=== PATIENT | male | born 1990 | race Caucasian/White ===

== ENCOUNTER 2017-11-14 20:53 | Emergency (ER) | payer SELFPAY ==
[2017-11-14 21:09] VITALS: BP 137/101
--- NOTE | 2017-11-14 21:13 | ED ---
Altered Mental Status - HPI Summary HPI Summary: 27 y/o male here c/o headache, confusion, "dissociative vision", anxiety, and increased BP. He was taking Lisinopril but PCP took him off. Today his symptoms are getting worse and he is very concern. Denies any weakness or CP. - History Of Current Complaint Stated Complaint: ANXIETY, PRESSURE IN HEAD, NAUSEA Time Seen by Provider: 11/14/17 20:58 - Allergies/Home Medications Allergies/Adverse Reactions: Allergies Allergy/AdvReac Type Severity Reaction Status Date / Time Penicillins Allergy Unknown Verified 11/14/17 21:09 Reaction Details Home Medications: Home Medications Acetaminophen [Tylenol] 325 mg PO 11/14/17 [History] PMH/Surg Hx/FS Hx/Imm Hx Infectious Disease History: Denies: Traveled Outside the [place] in Last 30 Days - Social History Alcohol Use: Daily Substance Use Type: Reports: None Smoking Status (MU): Unknown if Ever Smoked Review of Systems Constitutional: Negative Eyes: Other - "dissociative vision" ENT: Negative Cardiovascular: Negative Respiratory: Negative Gastrointestinal: Negative Genitourinary: Negative Musculoskeletal: Negative Skin: Negative Positive: Headache Positive: Anxious All Other Systems Reviewed And Are Negative: Yes Physical Exam - Summary Physical Exam Summary: VITAL SIGNS: Reviewed. GENERAL: Patient is an obese male who is sitting comfortable in the stretcher. Patient is not in any acute respiratory distress. HEAD AND FACE: Normacephalic and atraumatic. EYES: PERRLA, EOMI x 2, EARS: Hearing grossly intact. MOUTH: Oropharynx within normal limits. NECK: Supple, trachea is midline, no adenopathy, no JVD, no carotid bruit, no c- spine tenderness, neck with full ROM. CHEST: Symmetric, no tenderness at palpation LUNGS: CTA B/L. No wheezing or crackles. CVS: RRR, S1 and S2 present, no murmurs or gallops appreciated. ABDOMEN: Soft, NT, No distention. Normal BS. EXTREMITIES: FROM in all major joints, no edema, no cyanosis or clubbing. NEURO: Alert and oriented x 3. No acute neurological deficits. Speech is normal and follows commands. NIH score is 0. SKIN: Dry and warm Altered Mental Statu Course/Dx - Course Assessment/Plan: Patient with multiple complaints. However patient and significant other reports episodes of confusion, visual changes and he is hypertensive. I believe patient may benefit of further assessment in the ED. He declined ambulance. He will be driven by significant other. He is A+O x 3. - Diagnoses Provider Diagnoses: Headache, Visual changes, Anxiety, Hypertension Discharge - Sign-Out/Discharge Documenting (check all that apply): Discharge/Admit/Transfer - Discharge Plan Condition: Stable Disposition: HOME Patient Education Materials: Acute Headache (ED), Hypertension (ED) Referrals: Kyle Whitaker DO [Primary Care Provider] - Additional Instructions: Patient will be discharged to the ED for further assessment. He declined ambulance. - Billing Disposition and Condition Condition: STABLE Disposition: HOME
== END 2017-11-14 21:18 | disposition home or self-care (01) ==
LOC: UCEAST 20:53
DX: R51 Headache (principal); H53.9 Unspecified visual disturbance; F41.9 Anxiety disorder, unspecified; I10 Essential (primary) hypertension; Z88.0 Allergy status to penicillin
CPT/HCPCS: 99212; G0463

== ENCOUNTER 2017-11-14 21:45 | Emergency (ER) | payer SELFPAY ==
[2017-11-14] MEDS ORDERED: NS 0.9% 1000 ML* 1,000 ML IV ONE (22:43)
[2017-11-14] MEDS ORDERED: diPHENhydraMINE IV* 50 MG/ML 1 ml VIAL (BENADRYL) IV ONE (22:45)
[2017-11-14] MEDS ORDERED: Metoclopramide IV* 5 MG/ML 2 ML VIAL IV ONE (22:45)
[2017-11-14 23:19] LABS: INR 1.17 (0.77-1.02)
[2017-11-14 23:23] LABS: ABS Basophils 0.1 10^3/ul (0-0.2); ABS Eosinophils 0.2 10^3/ul (0-0.6); ABS Lymphocytes 3.2 10^3/ul (1.0-4.8); ABS Monocytes 0.6 10^3/ul (0-0.8); ABS Neutrophils 4.1 10^3/ul (1.5-7.7); ABS Nucleated RBC 0 10^3/ul; Eosinophil % 2.2 % (0-6); Hematocrit 43 % (42-52); Hemoglobin 15.4 g/dl (14.0-18.0); Lymphocyte % 39.4 % (25-47); Mean Corpuscular HGB Conc 36 g/dl (31-36); Mean Corpuscular Hemoglobin 31 pg (27-31); Mean Corpuscular Volume 86 fL (80-94); Mean Platelet Volume 8.7 um3 (7.4-10.4); Nucleated Red Blood Cells % 0.2; Platelet Count 241 10^3/ul (150-450); Red Blood Count 5.03 10^6/ul (4.0-5.4); Red Cell Distribution Width 13 % (10.5-15); White Blood Count 8.2 10^3/ul (3.5-10.8)
[2017-11-14 23:24] LABS: EGFR Non-African American 105.1 (>60)
--- NOTE | 2017-11-15 01:22 | ED ---
Sergio Crandall Jennifer, scribed for Cristi Her MD on 11/14/17 at 2246 . Complex/Multi-Sys Presentation - HPI Summary HPI Summary: The patient is a 27 y/o M who comes from [facility] complaining of intense anxiety, headache, and dizziness for three days. The patient states he has a history of tinnitus, but this has been worsening recently. He reports he ate a big dinner when he experienced myopic focus and new symptoms of anxiety that he has never had before. The patient additionally complains of shortness of breath, palpitations, pressure in his head, nausea, chills, and sweats. He was also hypertensive at . He denies chest pain, leg swelling, calf pain, and fever. The patient reports he took two 500mg tablets of extra strength Tylenol. - History Of Current Complaint Chief Complaint: EDGeneral Time Seen by Provider: 11/14/17 22:20 Hx Obtained From: Patient Onset/Duration: Sudden Onset, Lasting Days - 3 days, Still Present, Worse Since Timing: Constant Severity Currently: Moderate Severity Initially: Moderate Location: Pain At: - head pressure Character: Pressure Associated Signs And Symptoms: Positive: Other - anxiety, headache, dizziness, tinnitus, "myopic focus", shortness of breath, palpitations, nausea, chills, sweats, hypertensive. NEGATIVE: chest pain, leg swelling, calf pain, fever - Allergies/Home Medications Allergies/Adverse Reactions: Allergies Allergy/AdvReac Type Severity Reaction Status Date / Time Penicillins Allergy Unknown Verified 11/14/17 21:52 Reaction Details PMH/Surg Hx/FS Hx/Imm Hx Endocrine/Hematology History: Reports: Other Endocrine/Hematological Disorders - Factor Five Leiden Cardiovascular History: Reports: Hx Hypertension Infectious Disease History: No Infectious Disease History: Denies: Traveled Outside the [place] in Last 30 Days - Family History Known Family History: Positive: Other - Mother - HHT - Social History Alcohol Use: None 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 Substance Use Type: Reports: None Smoking Status (MU): Light Every Day Tobacco Smoker Review of Systems Positive: Chills, Skin Diaphoresis. Negative: Fever Positive: Other - "myopic focus" Positive: Palpitations, Other - hypertensive. Negative: Chest Pain Positive: Shortness Of Breath Positive: Nausea Negative: Edema, Other - calf pain Neurological: Other - Dizziness, tinnitus Positive: Headache - head pressure Positive: Anxious All Other Systems Reviewed And Are Negative: Yes Physical Exam - Summary Physical Exam Summary: GENERAL: ~Patient is a well developed and nourished M who is lying comfortable in the stretcher. ~Patient is not in any acute respiratory distress. HEAD AND FACE: Normocephalic EYES: PERRLA, EOMI x 2. EARS: Hearing grossly intact. MOUTH: Oropharynx within normal limits. NECK: Supple, trachea is midline, no adenopathy, no JVD, no carotid bruit. CHEST: Symmetric, no tenderness at palpation LUNGS: Clear to auscultation bilaterally. No wheezing or crackles. CVS: Regular rate and rhythm, S1 and S2 present, no murmurs or gallops appreciated. ABDOMEN: Soft, non-tender. Bowel sounds are normal. No abdominal abnormal pulsations. EXTREMITIES: Full ROM in all major joints, no edema, no cyanosis or clubbing. NEURO: Alert and oriented x 3. No acute neurological deficits. Speech is normal and follows commands. SKIN: Dry and warm Triage Information Reviewed: Yes Vital Signs On Initial Exam: Initial Vitals Temp Pulse Resp BP Pulse Ox 98.2 F 118 16 167/94 97 11/14/17 21:45 11/14/17 21:45 11/14/17 21:45 11/14/17 21:45 11/14/17 21:45 Vital Signs Reviewed: Yes Diagnostics - Vital Signs Vital Signs Temp Pulse Resp BP Pulse Ox 11/14/17 21:45 98.2 F 118 16 167/94 97 - Laboratory Result Diagrams: 11/14/17 22:59 11/14/17 22:59 Lab Statement: Any lab studies that have been ordered have been reviewed, and results considered in the medical decision making process. - Radiology CXR Xray Interpretation: No Acute Changes - Normal. Radiology Interpretation Completed By: ED Physician - CT Brain CT CT Interpretation: No Acute Changes - Normal head. Dr. Her has reviewed this report. CT Interpretation Completed By: Radiologist - EKG 8493 Cardiac Rate: NL EKG Rhythm: Sinus Rhythm - 91 BPM Complex Multi-Symp Course/Dx Course Of Treatment: The patient is a 27 y/o M who comes from [facility] complaining of intense anxiety, headache, and dizziness for three days. In the ED course the patient was given IV fluids, Benadryl, and Reglan. Bloodwork was obtained. EKG and CXR obtained. The patient is diagnosed with Headache and Palpitation. Pt is instructed to follow up with PCP in 3 days. Return precautions given. - Diagnoses Provider Diagnoses: Headache, Palpitation Discharge - Sign-Out/Discharge Documenting (check all that apply): Discharge/Admit/Transfer - Discharge Plan Condition: Stable Disposition: HOME Patient Education Materials: Heart Palpitations (ED), Acute Headache (ED) Referrals: Kyle Whitaker DO [Primary Care Provider] - 3 Days Additional Instructions: Follow up with your primary care physician in three days. Return to the emergency department for any new or worsening symptoms. The documentation as recorded by the Sergio arteaga Jennifer accurately reflects the service I personally performed and the decisions made by , Cristi Her MD.
[2017-11-15 01:32] VITALS: BP 138/84
--- NOTE | 2017-11-15 09:10 | RAD ---
Indication: Headaches. CT of the brain was performed without IV contrast. Ventricular structures are midline. No midline shift is noted. The extra-axial spaces are unremarkable. Comparison is made with previous exam dated 05/09/2010 and 12/17/2004. Ventricular structures are midline. No midline shift is noted. The extraction spaces are unremarkable. Again noted deep white matter in the right parietal lobe is a calcified fluid density lesion measuring approximately 7 mm in greatest dimension. This is unchanged from previous exam as far back as 2004 and 2009. Some peripheral calcifications are noted. This may represent degeneration of disks blastic tissue. There is a prominent sulci in the right parietal lobe. Several arachnoid cysts are noted. The paranasal sinuses and orbits are otherwise unremarkable. IMPRESSION: There is a cystlike calcified structure deep in the right parietal white matter which appears to communicate with the area of a prominent sulcus in the right parietal lobe. This may represent dystrophic tissue that has degenerated. No intracranial mass or hemorrhage is noted.
--- NOTE | 2017-11-15 10:09 | RAD ---
Indication: Chest pain. Single frontal view of the chest performed at 2311 hours was reviewed. Comparison is made with previous exam dated June 23, 1980. No mediastinal shift is noted. Heart is of normal size and configuration. Lung agudelo appear clear. IMPRESSION: NO ACTIVE CARDIOPULMONARY DISEASE IS NOTED.
== END 2017-11-15 01:30 | disposition home or self-care (01) ==
LOC: ED 21:45
DX: R51 Headache (principal); R00.2 Palpitations; F41.9 Anxiety disorder, unspecified; R42 Dizziness and giddiness
CPT/HCPCS: 36415; 70450; 71045; 80053; 82553; 83605; 83880; 84443; 84484; 85025; 85379; 85610; 85730; 93005; 96374; 96375; 99282; J1200; J2765

== ENCOUNTER 2017-12-28 16:40 | Emergency (ER) | payer SELFPAY ==
[2017-12-28 16:47] VITALS: BP 136/94
--- NOTE | 2017-12-28 17:24 | UC ---
eDna Crandall Elizabeth, scribed for Francisco Javier Conteh MD on 12/28/17 at 1657 . Skin Complaint HPI - HPI Summary HPI Summary: This patient is a 27 year old M presenting to [facility] with a chief complaint of open lesion in the right lower abd since 3 days ago. The patient reports that he first noticed the lesion as a small bump since 2 weeks ago. The patient notes that the lesion has been leaking clear, watery fluid and has not discharged any pus recently. The patient rates the pain 1/10 in severity. Symptoms aggravated by rubbing against clothing. Symptoms alleviated by nothing. The patient notes he recently has been tested for STIs. - History of Current Complaint Chief Complaint: UCSkin Time Seen by Provider: 12/28/17 16:49 Stated Complaint: SORE ON ABDOMEN Hx Obtained From: Patient Onset/Duration: Sudden Onset, Lasting Days - 3 days, Still Present Skin Exposure Onset/Duration: Days Ago - 3 days Timing: Constant Onset Severity: Mild Current Severity: Mild Pain Intensity: 1 Pain Scale Used: 0-10 Numeric Location: Other - right lower abd Aggravating Factor(s): Clothing Alleviating Factor(s): Nothing Associated Signs & Symptoms: Positive: Drainage - clear, watery drainage - Allergy/Home Medications Allergies/Adverse Reactions: Allergies Allergy/AdvReac Type Severity Reaction Status Date / Time Penicillins Allergy Unknown Verified 12/28/17 16:47 Reaction Details Review of Systems Constitutional: Negative - neagtive chills Skin: Other - open lesion on right lower abdomen ENT: Negative - negative epistaxis Respiratory: Negative - negative cough All Other Systems Reviewed And Are Negative: Yes PMH/Surg Hx/FS Hx/Imm Hx Previously Healthy: Yes - Surgical History Surgical History: None - Family History Known Family History: Positive: Other - Mother - HHT - Social History Alcohol Use: None 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 Substance Use Type: None Smoking Status (MU): Light Every Day Tobacco Smoker Physical Exam - Summary Physical Exam Summary: General: well-appearing, no pain distress Skin: warm, color reflects adequate perfusion, dry, one area of folliculitis on the anterior waistline, no other lesions Head: normal Eyes: EOMI, LARRY ENT: normal Neck: supple, nontender Respiratory: CTA, breath sounds present Cardiovascular: RRR Abdomen: soft, nontender Bowel: present Musculoskeletal: normal, strength/ROM intact Neurological: sensory/motor intact, A&O x3 Psychological: affect/mood appropriate Triage Information Reviewed: Yes Vital Signs: Initial Vital Signs Temp 99.2 F 12/28/17 16:45 Pulse 99 12/28/17 16:45 Resp 18 12/28/17 16:45 BP 136/94 12/28/17 16:45 Pulse Ox 99 12/28/17 16:45 Vital Signs Reviewed: Yes Course/Dx - Diagnoses Provider Diagnoses: FOLLICULITIS Discharge - Sign-Out/Discharge Documenting (check all that apply): Discharge/Admit/Transfer - Discharge Plan Condition: Stable Disposition: HOME Discharge Disposition Comment: discharge home Prescriptions: Sulfamethox/Trimethoprim DS* [Bactrim DS 800/160 TAB*] 1 tab PO BID #20 tab Patient Education Materials: Folliculitis (ED) Referrals: Kyle Whitaker DO [Primary Care Provider] - Additional Instructions: FOLLOW UP WITH YOUR DOCTOR. GET RECHECKED FOR ANY WORSENING OF YOUR CONDITION OR QUESTIONS OR CONCERNS. - Billing Disposition and Condition Condition: STABLE Disposition: Home The documentation as recorded by the Dena arteaga Elizabeth accurately reflects the service I personally performed and the decisions made by me, Francisco Javier Conteh MD.
== END 2017-12-28 16:56 | disposition home or self-care (01) ==
LOC: UCEAST 16:40
DX: L73.9 Follicular disorder, unspecified (principal); Z88.0 Allergy status to penicillin; F17.200 Nicotine dependence, unspecified, uncomplicated
CPT/HCPCS: 99212; G0463

== ENCOUNTER 2018-01-26 21:12 | Emergency (ER) | payer SELFPAY ==
[2018-01-26] MEDS ORDERED: Ketorolac INJ* 30 MG/ML 1 ML VIAL IV ONE (23:01)
[2018-01-26] MEDS ORDERED: diPHENhydraMINE IV* 50 MG/ML 1 ml VIAL (BENADRYL) IM ONE (23:01)
[2018-01-26] MEDS ORDERED: Metoclopramide IV* 5 MG/ML 2 ML VIAL IV ONE (23:01)
--- NOTE | 2018-01-26 23:12 | ED ---
Headache - HPI Summary HPI Summary: This is jenni Bryant documenting for attending Nils Keita MD. This patient is a 27 year old M presenting to ED with a chief complaint of KATE since 1 hour ago. He reports onset occurred after a nose bleed 2 hours ago. He has been getting nose bleeds for a couple months now and after he would slip close to getting a KATE but never did until today. The patient rates the pain 5/ 10 in severity. Symptoms aggravated by nothing. Symptoms alleviated slightly spontaneously. Patient reports photosensitivity, elevated BP (secondary to being in the ED), pressure in his ears, and redness in his eyes after trying to alleviate KATE with a warm compress behind the head. Patient denies vomiting. PMHx of HTN (took lisinopril in the past but stopped because doctor said he didn t need it anymore). - History Of Current Complaint Chief Complaint: EDHeadache Stated Complaint: LETHARGIC/HEADACHE Time Seen by Provider: 01/26/18 22:45 Hx Obtained From: Patient Onset/Duration: Sudden Onset, Started hours ago - 1 hour ago, Still Present Currently Pain Is: Current Pain Scale(0-10)= - 5/10 Timing: Constant, Hours - since 1 hour ago Aggravating Factor: Nothing Allevating Factors: Other (Noted In Comments) - spontaneously alleviated slightly Associated Signs And Symptoms: Other (Noted In Comments) - Patient reports photosensitivity, elevated BP (secondary to being in the ED), pressure in his ears, and redness in his eyes after trying to alleviate KATE with a warm compress behind the head. Patient denies vomiting - Allergies/Home Medications Allergies/Adverse Reactions: Allergies Allergy/AdvReac Type Severity Reaction Status Date / Time Penicillins Allergy Unknown Verified 01/26/18 21:28 Reaction Details PMH/Surg Hx/FS Hx/Imm Hx Endocrine/Hematology History: Reports: Other Endocrine/Hematological Disorders - Factor Five Leiden Cardiovascular History: Reports: Hx Hypertension Infectious Disease History: No Infectious Disease History: Denies: Traveled Outside the [place] in Last 30 Days - Family History Known Family History: Positive: Other - Mother - HHT - Social History Alcohol Use: None 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 Substance Use Type: Reports: None Smoking Status (MU): Light Every Day Tobacco Smoker Review of Systems Positive: Other - photosensitivity, redness in his eyes after trying to alleviate KATE with a warm compress behind the head Positive: Other - pressure in his ears Positive: Other - elevated BP (secondary to being in the ED) Negative: Vomiting Positive: Headache All Other Systems Reviewed And Are Negative: Yes Physical Exam - Summary Physical Exam Summary: VITAL SIGNS: Reviewed. GENERAL: Patient is a well-developed and nourished MALE who is lying comfortable in the stretcher. Patient is not in any acute respiratory distress. HEAD AND FACE: No signs of trauma. No ecchymosis, hematomas or skull depressions. No sinus tenderness. EYES: PERRLA, EOMI x 2, No injected conjunctiva, no nystagmus. EARS: Hearing grossly intact. Ear canals and tympanic membranes are within normal limits. MOUTH: Oropharynx within normal limits. NECK: Supple, trachea is midline, no adenopathy, no JVD, no carotid bruit, no c- spine tenderness, neck with full ROM. CHEST: Symmetric, no tenderness at palpation LUNGS: Clear to auscultation bilaterally. No wheezing or crackles. CVS: Regular rate and rhythm, S1 and S2 present, no murmurs or gallops appreciated. ABDOMEN: Soft, non-tender. No signs of distention. No rebound no guarding, and no masses palpated. Bowel sounds are normal. EXTREMITIES: FROM in all major joints, no edema, no cyanosis or clubbing. NEURO: Alert and oriented x 3. No acute neurological deficits. Speech is normal and follows commands. SKIN: Dry and warm Triage Information Reviewed: Yes Vital Signs On Initial Exam: Initial Vitals Temp Pulse Resp BP Pulse Ox 98.6 F 78 19 154/110 96 01/26/18 21:24 01/26/18 21:24 01/26/18 21:24 01/26/18 21:24 01/26/18 21:24 Vital Signs Reviewed: Yes Diagnostics - Vital Signs Vital Signs Temp Pulse Resp BP Pulse Ox 01/26/18 21:24 98.6 F 78 19 154/110 96 - Laboratory Result Diagrams: 01/26/18 23:37 01/26/18 23:37 Lab Statement: Any lab studies that have been ordered have been reviewed, and results considered in the medical decision making process. Headache Course/Dx - Course Assessment/Plan: The patient refused pain medications here in the ED. His workup is within normal limits. He will be discharged home with dx of HTN and KATE. He will be given lisinopril for his HTN. He is agreeable with this plan. - Diagnoses Differential Diagnosis/HQI/PQRI: Other - HTN, KATE Provider Diagnoses: HTN (hypertension), Headache Discharge - Sign-Out/Discharge Documenting (check all that apply): Patient Departure - Discharge Plan Condition: Stable Disposition: HOME Prescriptions: Lisinopril TAB* [Prinivil TAB 5 MG*] 5 mg PO DAILY #30 tab Patient Education Materials: Acute Headache (ED), Hypertension (ED) Referrals: Kyle Whitaker DO [Primary Care Provider] - (Follow up with your primary care physician in 1-3 days.) Additional Instructions: RETURN TO THE EMERGENCY DEPARTMENT FOR CHANGING OR WORSENING SYMPTOMS.
[2018-01-26] MEDS: Labetalol IV* 5 MG/ML 20 ML VIAL IV PUSH ONE ×2 (23:20→23:23)
[2018-01-26 23:45] LABS: ABS Basophils 0.1 10^3/ul (0-0.2); ABS Eosinophils 0.1 10^3/ul (0-0.6); ABS Lymphocytes 2.5 10^3/ul (1.0-4.8); ABS Monocytes 0.6 10^3/ul (0-0.8); ABS Neutrophils 3.4 10^3/ul (1.5-7.7); ABS Nucleated RBC 0 10^3/ul; Eosinophil % 2.2 % (0-6); Hematocrit 45 % (42-52); Hemoglobin 15.9 g/dl (14.0-18.0); Lymphocyte % 37.8 % (25-47); Mean Corpuscular HGB Conc 35 g/dl (31-36); Mean Corpuscular Hemoglobin 30 pg (27-31); Mean Corpuscular Volume 86 fL (80-94); Mean Platelet Volume 8.9 um3 (7.4-10.4); Nucleated Red Blood Cells % 0.2; Platelet Count 216 10^3/ul (150-450); Red Blood Count 5.25 10^6/ul (4.00-5.40); Red Cell Distribution Width 13 % (10.5-15); White Blood Count 6.7 10^3/ul (3.5-10.8)
[2018-01-26 23:56] LABS: INR 1.11 (0.77-1.02)
[2018-01-27 00:01] LABS: EGFR Non-African American 131.2 (>60)
[2018-01-27 01:03] VITALS: BP 145/92
== END 2018-01-27 01:03 | disposition home or self-care (01) ==
LOC: ED 21:12
DX: I10 Essential (primary) hypertension (principal); R51 Headache
CPT/HCPCS: 36415; 80053; 85025; 85610; 85730; 96372; 96374; 96375; 99283; J1200; J1885; J2765

== ENCOUNTER 2018-02-12 22:51 | Emergency (ER) | payer SELFPAY ==
[2018-02-12 22:58] VITALS: BP 169/99
== END 2018-02-13 00:28 | disposition left against medical advice (07) ==
LOC: ED 22:51
DX: R51 Headache (principal); R03.0 Elevated blood-pressure reading, without diagnosis of hypertension; Z53.21 Procedure and treatment not carried out due to patient leaving prior to being seen by health care provider

== ENCOUNTER 2018-07-10 16:36 | Emergency (ER) | payer SELFPAY ==
[2018-07-10 17:14] VITALS: BP 151/95
--- NOTE | 2018-07-10 17:24 | UC ---
UC General HPI - HPI Summary HPI Summary: patient is leaving on vacation and needs his propranolol refilled--- - History of Current Complaint Chief Complaint: UCMedRefill Stated Complaint: MEDICATION REFILL Time Seen by Provider: 07/10/18 17:10 Hx Obtained From: Patient Timing: Constant Pain Intensity: 0 - Allergy/Home Medications Allergies/Adverse Reactions: Allergies Allergy/AdvReac Type Severity Reaction Status Date / Time latex Allergy Rash Verified 07/10/18 17:11 Penicillins Allergy Unknown Verified 07/10/18 17:11 Reaction Details Home Medications: Home Medications Propranolol HCl [Propranolol HCl ER] 80 mg PO DAILY 07/10/18 [History Confirmed 07/10/18] PMH/Surg Hx/FS Hx/Imm Hx Previously Healthy: No Cardiovascular History: Hypertension - Surgical History Surgical History: None - Family History Known Family History: Positive: Other - Mother - HHT - Social History Occupation: Employed Full-time Lives: With Family Alcohol Use: None 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 Substance Use Type: None Smoking Status (MU): Light Every Day Tobacco Smoker Type: eCigarettes Amount Used/How Often: 2 cig per day Have You Smoked in the Last Year: Yes Cessation Counseling: Counseled 3+Min - 10 Min Review of Systems All Other Systems Reviewed And Are Negative: Yes Constitutional: Positive: Negative Skin: Positive: Negative Eyes: Positive: Negative ENT: Positive: Negative Respiratory: Positive: Negative Cardiovascular: Positive: Negative Gastrointestinal: Positive: Negative Genitourinary: Positive: Negative Motor: Positive: Negative Neurovascular: Positive: Negative Musculoskeletal: Positive: Negative Neurological: Positive: Negative Psychological: Positive: Negative Is Patient Immunocompromised?: No Physical Exam Triage Information Reviewed: Yes Appearance: Well-Appearing, No Pain Distress, Well-Nourished Vital Signs: Initial Vital Signs Temp 97.4 F 07/10/18 17:07 Pulse 82 07/10/18 17:07 Resp 16 07/10/18 17:07 BP 151/95 07/10/18 17:07 Pulse Ox 100 07/10/18 17:07 Vital Signs Reviewed: Yes Eye Exam: Normal Eyes: Positive: Conjunctiva Clear ENT Exam: Normal ENT: Positive: Normal ENT inspection, Hearing grossly normal. Negative: Nasal congestion, Trismus, Muffled voice, Hoarse voice Neck exam: Normal Neck: Positive: Supple Respiratory: Positive: Chest non-tender, No respiratory distress, No accessory muscle use Cardiovascular Exam: Normal Cardiovascular: Positive: Brisk Capillary Refill Musculoskeletal Exam: Normal Musculoskeletal: Positive: Strength Intact, ROM Intact, No Edema Neurological Exam: Normal Neurological: Positive: Alert, Muscle Tone Normal Psychological Exam: Normal Skin Exam: Normal Course/Dx - Course Course Of Treatment: refill Propranolol, nicotine cesasation information and MAT offered and accepted - Diagnoses Provider Diagnosis: Alcohol dependence in sustained full remission, Nicotine dependence with current use, Hypertension, Health education/counseling Discharge - Sign-Out/Discharge Documenting (check all that apply): Patient Departure All imaging exams completed and their final reports reviewed: No Studies - Discharge Plan Condition: Stable Disposition: HOME Prescriptions: Nicotine Inhaler* 10 mg INH Q2H PRN #1 box PRN Reason: nicotine craving Propranolol HCl [Propranolol HCl ER] 80 mg PO DAILY #30 cap.sa.24h Patient Education Materials: How to Stop Smoking (ED), Hypertension (ED), Electronic Cigarettes and Your Health (ED) Referrals: Kyle Whitaker, [Primary Care Provider] - As Soon As Possible - Billing Disposition and Condition Condition: STABLE Disposition: Home - Attestation Statements Provider Attestation: Per institutional requirements, I have reviewed the chart, however, I was not consulted specifically or made aware of this patient by the midlevel provider. I did not personally evaluate, interact with , or disposition this patient.
== END 2018-07-10 17:21 | disposition home or self-care (01) ==
LOC: UCEAST 16:36
DX: Z76.0 Encounter for issue of repeat prescription (principal); I10 Essential (primary) hypertension; F17.210 Nicotine dependence, cigarettes, uncomplicated; F10.21 Alcohol dependence, in remission; Z71.9 Counseling, unspecified; Z88.0 Allergy status to penicillin; Z91.040 Latex allergy status; Z79.899 Other long term (current) drug therapy
CPT/HCPCS: 99212; G0463

== ENCOUNTER 2018-08-12 19:20 | Emergency (ER) | payer SELFPAY ==
--- NOTE | 2018-08-12 19:30 | UC ---
UC General HPI - History of Current Complaint Stated Complaint: RX REFILL Time Seen by Provider: 08/12/18 19:30 - Allergy/Home Medications Allergies/Adverse Reactions: Allergies Allergy/AdvReac Type Severity Reaction Status Date / Time latex Allergy Rash Verified 07/10/18 17:11 Penicillins Allergy Unknown Verified 07/10/18 17:11 Reaction Details PMH/Surg Hx/FS Hx/Imm Hx - Surgical History Surgical History: None - Family History Known Family History: Positive: Other - Mother - HHT - Social History Alcohol Use: None 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 Substance Use Type: None Smoking Status (MU): Light Every Day Tobacco Smoker Type: eCigarettes Amount Used/How Often: 2 cig per day Have You Smoked in the Last Year: Yes Discharge - Discharge Plan Referrals: Kyle Whitaker DO [Primary Care Provider] -
--- NOTE | 2018-08-12 19:43 | UC ---
Hypertension HPI - HPI Summary HPI Summary: 27-year-old male comes to clinic with a chief complaint of running out of his blood pressure medication. He takes propanolol 80 mg extended release daily. Been feeling well no headaches no chest pain no shortness of breath. Been able unable to follow-up for refill with his primary care doctor. He has been on lisinopril in the past. 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 Substance Use Type: None Smoking Status (MU): Light Every Day Tobacco Smoker Type: eCigarettes Amount Used/How Often: 2 cig per day Have You Smoked in the Last Year: Yes Review of Systems All Other Systems Reviewed And Are Negative: Yes Constitutional: Positive: Negative Skin: Positive: Negative Eyes: Positive: Negative ENT: Positive: Negative Respiratory: Positive: Negative Cardiovascular: Positive: Negative Gastrointestinal: Positive: Negative Motor: Positive: Negative Neurovascular: Positive: Negative Musculoskeletal: Positive: Negative Neurological: Positive: Negative Psychological: Positive: Negative Is Patient Immunocompromised?: No Physical Exam Triage Information Reviewed: Yes Appearance: Well-Appearing, No Pain Distress, Well-Nourished Vital Signs: Initial Vital Signs Temp 97.8 F 08/12/18 19:29 Pulse 77 08/12/18 19:29 Resp 16 08/12/18 19:29 BP 177/102 08/12/18 19:29 Pulse Ox 96 08/12/18 19:29 Vital Signs Reviewed: Yes Eye Exam: Normal Eyes: Positive: Conjunctiva Clear Neck exam: Normal Neck: Positive: Supple Respiratory: Positive: Lungs clear, Normal breath sounds, No respiratory distress Cardiovascular: Positive: RRR Musculoskeletal Exam: Normal Musculoskeletal: Positive: Strength Intact, ROM Intact Neurological Exam: Normal Neurological: Positive: Alert, Muscle Tone Normal Psychological Exam: Normal Psychological: Positive: Age Appropriate Behavior Skin Exam: Normal Hypertension Course/Dx - Differential Dx/Diagnosis Provider Diagnosis: Hypertension Discharge - Sign-Out/Discharge Documenting (check all that apply): Patient Departure All imaging exams completed and their final reports reviewed: No Studies - Discharge Plan Condition: Stable Disposition: HOME Prescriptions: Propranolol HCl [Propranolol HCl ER] 80 mg PO DAILY #30 cap Patient Education Materials: Hypertension (ED) Referrals: Kyle Whitaker DO [Primary Care Provider] - Additional Instructions: FOLLOW UP WITH YOUR DOCTOR IN THE NEXT 1-2 WEEKS. GET RECHECKED FOR ANY WORSENING OF YOUR CONDITION OR QUESTIONS OR CONCERNS. - Billing Disposition and Condition Condition: STABLE Disposition: Home
[2018-08-12 19:59] VITALS: BP 168/84
== END 2018-08-12 19:58 | disposition home or self-care (01) ==
LOC: UCEAST 19:20
DX: I10 Essential (primary) hypertension (principal); Z88.0 Allergy status to penicillin; Z91.040 Latex allergy status
CPT/HCPCS: 99212; G0463

== ENCOUNTER 2019-02-16 12:08 | Emergency (ER) | payer SELFPAY ==
[2019-02-16 12:50] VITALS: BP 147/97
--- NOTE | 2019-02-16 13:11 | UC ---
Ear Complaint HPI - HPI Summary HPI Summary: 28 yo male with week to mos of ears popping/problems with altitude change move his jaw and hearing improves now with right ear pain denies nasal congestion has hx perforated nasal septum - History of Current Complaint Chief Complaint: UCEar Stated Complaint: EAR PAIN Time Seen by Provider: 02/16/19 12:49 Hx Obtained From: Patient Onset/Duration: Gradual Onset, Lasting Days Severity Initially: Mild Severity Currently: Moderate Pain Intensity: 5 Pain Scale Used: 0-10 Numeric Aggravating Factors: Nothing Alleviating Factors: Nothing Related History: Seasonal Allergies - Allergies/Home Medications Allergies/Adverse Reactions: Allergies Allergy/AdvReac Type Severity Reaction Status Date / Time latex Allergy Rash Verified 02/16/19 12:50 Penicillins Allergy Unknown Verified 02/16/19 12:50 Reaction Details Home Medications: Home Medications Ibuprofen [Advil] 400 mg PO ONCE 02/16/19 [History Confirmed 02/16/19] PMH/Surg Hx/FS Hx/Imm Hx Previously Healthy: Yes Cardiovascular History: Hypertension - Surgical History Surgical History: None - Family History Known Family History: Positive: Hypertension, Other - Mother - HHT - Social History Alcohol Use: None 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 Substance Use Type: None Smoking Status (MU): Light Every Day Tobacco Smoker Type: eCigarettes Amount Used/How Often: smokes Juul Have You Smoked in the Last Year: Yes Review of Systems All Other Systems Reviewed And Are Negative: Yes Constitutional: Positive: Negative Skin: Positive: Negative Eyes: Positive: Negative ENT: Positive: Dental Pain, Ear Ache Cardiovascular: Positive: Negative Gastrointestinal: Positive: Negative Genitourinary: Positive: Negative Motor: Positive: Negative Neurovascular: Positive: Negative Musculoskeletal: Positive: Negative Neurological: Positive: Negative Psychological: Positive: Negative Physical Exam Triage Information Reviewed: Yes Appearance: Well-Appearing, No Pain Distress, Well-Nourished Vital Signs: Initial Vital Signs Temp 98.9 F 02/16/19 12:46 Pulse 78 02/16/19 12:46 Resp 17 02/16/19 12:46 BP 147/97 02/16/19 12:46 Pulse Ox 100 02/16/19 12:46 Vital Signs Reviewed: Yes Eyes: Positive: Conjunctiva Clear ENT: Positive: Hearing grossly normal, TM bulging - R>L, Uvula midline, Other - perf nasal septum. Negative: Nasal congestion, Nasal drainage, Tonsillar swelling, Tonsillar exudate, Trismus, Muffled voice, Hoarse voice, Dental tenderness, Sinus tenderness Dental Exam: Normal Neck: Positive: Supple, Nontender, No Lymphadenopathy Respiratory: Positive: Lungs clear, Normal breath sounds, No respiratory distress Cardiovascular: Positive: RRR Musculoskeletal: Positive: ROM Intact, No Edema Neurological: Positive: Alert Psychological Exam: Normal Skin Exam: Normal Ear Complaint Course/Dx - Differential Dx/Diagnosis Provider Diagnosis: Right serous otitis media Discharge - Sign-Out/Discharge Documenting (check all that apply): Patient Departure All imaging exams completed and their final reports reviewed: No Studies - Discharge Plan Condition: Stable Disposition: HOME Prescriptions: predniSONE [Deltasone 20 MG TAB] 20 - 40 mg PO DAILY #11 tab Patient Education Materials: Serous Otitis Media (ED) Referrals: Kyle Whitaker DO [Primary Care Provider] - If Needed Additional Instructions: recheck for new or worsening symptoms see ENT as planned - Billing Disposition and Condition Condition: STABLE Disposition: Home
== END 2019-02-16 13:10 | disposition home or self-care (01) ==
LOC: UCEAST 12:08
DX: H65.91 Unspecified nonsuppurative otitis media, right ear (principal); I10 Essential (primary) hypertension; F17.210 Nicotine dependence, cigarettes, uncomplicated; Z88.0 Allergy status to penicillin; Z91.040 Latex allergy status
CPT/HCPCS: 99212; G0463